=== PATIENT | female | born 1980 | race Asian ===

== ENCOUNTER 2016-12-31 18:18 | Emergency (ER) | payer BC ==
[~2016-12-31] VITALS: Ht 160 cm; Wt 54.5 kg
[~2016-12-31 18:18] MED LIST: IRON325 M2 PO; MOTRIN 600600 MG/TAB PO; PERCOCET 325 MG1 TA2 PO; PRENATAL1 TA1 PO
[2016-12-31 18:26] VITALS: BP 108/81; TEMP 98.2
[2016-12-31] MEDS ORDERED: TOBRADEX EYE DRO5 ML OP (18:29)
[2016-12-31] MEDS ORDERED: CLEOCIN HCL300 MG PO (18:30)
[2016-12-31 19:02] LABS: BASO % 0.5 % (0.0-2.0); EOS # 0.3 (0.0-0.7); GRAN % 69.3 % (42.2-75.2); LYMPH # 1.9 (1.2-3.4); LYMPH % 21.6 % (20.0-51.0); MEAN CELL VOLUME 87 fl (80.0-100.0); MEAN CORPUSCULAR HGB CONC 33 g/dl (33.0-37.0); MEAN PLATELET VOLUME 10.4 fl (7.4-10.4); MONO # 0.5 (0.1-0.6); MONO % 5.3 % (1.7-9.3); PLATELET COUNT 234 K/mm3 (130-400); RED BLOOD COUNT 3.95 M/mm3 (4.10-5.30); REDCELL DISTRIBUTION WIDTH-CV 12.7 % (11.5-14.5); WHITE BLOOD COUNT 8.7 K/mm3 (4.8-10.8)
[2016-12-31 19:12] LABS: ALBUMIN 4.5 gm/dL (3.5-5.0); BILIRUBIN,TOTAL 0.8 mg/dL (0.0-1.0); C-REACTIVE PROTEIN 0.5 mg/dL (0.0-0.9); CALCIUM 9.4 mg/dL (8.4-10.2); CREATININE, serum 0.6 mg/dL (0.52-1.25); TOTAL PROTEIN 8.1 gm/dL (6.4-8.2)
[2016-12-31 19:26] LABS: HEMATOCRIT 34.5 % (37.0-47.0); HEMOGLOBIN 11.2 g/dl (12.5-16.0); MEAN CORPUSCULAR HEMOGLOBIN 28 pg (27.0-31.0)
[2016-12-31 21:38] VITALS: PULSE 88
== END 2016-12-31 21:41 | disposition home or self-care (01) ==
LOC: COL.ER 18:18
PROVIDERS: Emergency Medicine
DX: L03.213 Periorbital cellulitis (principal)
CPT/HCPCS: J1885; J2765; J3010; J3370; J7030; J7050; Q9967

== ENCOUNTER → 2020-01-02 | Outpatient (CLI) | payer BC ==
[~2020-01-02] MED LIST changes: +CLEOCIN HCL300 MG PO; +TOBRADEX EYE DRO5 ML OP
== END ==
LOC: COL.RAD 13:39
DX: E05.90 Thyrotoxicosis, unspecified without thyrotoxic crisis or storm (principal)
CPT/HCPCS: A9516